=== PATIENT | male | born 2000 | race Caucasian/White ===

== ENCOUNTER 2021-01-21 12:55 | Emergency (ER) | payer BC ==
[2021-01-21] MEDS ORDERED: CEPHALEXIN500 M1 PO (13:50)
== END 2021-01-21 14:05 | disposition home or self-care (01) ==
LOC: ER1 12:55
DX: M79.5 Residual foreign body in soft tissue (principal); E11.9 Type 2 diabetes mellitus without complications
CPT/HCPCS: 10120; 72220; 99283